=== PATIENT | male | born 1960 | race African-American/Black ===

== ENCOUNTER → 2021-10-26 | Outpatient (CLI) | payer OTHER ==
[~2021-10-26] MED LIST: CONTRAST GIVEN. MC PRN; IOHEXOL 240 MG/ML 50ML VIAL. PO ONE; IOHEXOL 300 MG/ML 100ML VIAL. IV ONE
--- NOTE | 2021-10-26 15:32 | RAD ---
EXAM: CT ABDOMEN/PELVIS WITH CONTRAST. HISTORY: Ventral hernia. TECHNIQUE: Computed tomography of the abdomen and pelvis was performed after the intravenous administ ration of iodinated contrast. One or more of the following individualized dose reduction techniques w ere utilized for this examination: 1. Automated exposure control. 2. Adjustment of the mA and/or kV according to patient size. 3. Use of iterative reconstruction technique. COMPARISON: None. FINDINGS: Lung windows through the visualized portions of the bases reveal mild atelectasis. Bone win dows reveal no suspicious lesions. There is a small intramuscular lipoma in the right ribs muscle ginna suring 2.1 x 1.2 cm. The liver, gallbladder, pancreas, adrenal glands, spleen and kidneys are unremarkable. There are no p athologically enlarged lymph nodes. There is a small hiatal hernia. Sigmoid diverticulosis is mild. The appendix is not inflamed. There is no small bowel obstruction. Th e prostate is severely enlarged at 6.6 x 5.6 cm and impresses on the bladder base. A small to moderate umbilical hernia contains only fat. Its neck measures 3.6 x 2.8 cm. Another small supraumbilical hernia lies 2.5 cm superior to the umbilicus and also contains only fat. Its neck ginna sures 1 cm. It likely contains some fat necrosis. IMPRESSION: 1. Small to moderate umbilical hernia containing only fat. 2. Small immediately supraumbilical hernia containing fat and likely some fat necrosis. 3. Small hiatal hernia. 4. Severe benign prostatic hypertrophy. Electronically signed by: Devin Mancera MD (10/26/2021 3:30 PM) [id number]
== END ==
LOC: CT 11:18
PROVIDERS: ATTEND Specialist
DX: K42.9 Umbilical hernia without obstruction or gangrene (principal); K44.9 Diaphragmatic hernia without obstruction or gangrene; N40.0 Benign prostatic hyperplasia without lower urinary tract symptoms; J98.11 Atelectasis; K57.30 Diverticulosis of large intestine without perforation or abscess without bleeding; K43.9 Ventral hernia without obstruction or gangrene
CPT/HCPCS: 74177; Q9966; Q9967

== ENCOUNTER → 2021-11-25 | Outpatient (CLI) | payer MEDICAID, OTHER ==
[~2021-11-25] MED LIST changes: +AMLO-187 PO; -CONTRAST GIVEN. MC PRN; +FINA5TAB4 PO; -IOHEXOL 240 MG/ML 50ML VIAL. PO ONE; -IOHEXOL 300 MG/ML 100ML VIAL. IV ONE; +LATA2.5D2 OU; +LOSA-73 PO; +OMEP20TA91 PO; +OXYC20TA PO; +TAMS0.4C97 PO; +ZOLP5TAB5 PO
[2021-11-25 14:55] LABS: BASO % 1 % (0-3); EOS # 0.1 x10^3/uL (0.0-0.7); EOS % 3 % (0-3); HEMATOCRIT 41.2 % (39.0-53.0); HEMOGLOBIN 13.3 g/dL (13.0-17.5); LYMPH # 2.3 x10^3/uL (1.0-4.8); LYMPH % 45 % (24-48); MEAN CORPUSCULAR HEMOGLOBIN 27 pg (25-35); MEAN CORPUSCULAR HGB CONC 32 g/dL (31-37); MEAN CORPUSCULAR VOLUME 84 fL (79-100); MONO # 0.6 x10^3/uL (0.0-1.1); MONO % 12 % (0-9); NEUT % 40 % (31-73); PLATELET COUNT 126 x10^3/uL (140-400); RED BLOOD COUNT 4.89 x10^6/uL (4.30-5.70); RED CELL DISTRIBUTION WIDTH 13.4 % (11.5-14.5); WHITE BLOOD COUNT 5.1 x10^3/uL (4.0-11.0)
[2021-11-25 15:14] LABS: ALBUMIN 3.7 g/dL (3.4-5.0); ALBUMIN/GLOBULIN RATIO 0.8 (1.0-1.7); CALCIUM 8.4 mg/dL (8.5-10.1); CREATININE 1.2 mg/dL (0.7-1.3); GFR 74.2; POTASSIUM 3.7 mmol/L (3.5-5.1); TOTAL BILIRUBIN 0.4 mg/dL (0.2-1.0); TOTAL PROTEIN 8.1 g/dL (6.4-8.2)
== END ==
LOC: SURGPAT 14:07
PROVIDERS: ATTEND Specialist
DX: Z01.812 Encounter for preprocedural laboratory examination (principal); K43.9 Ventral hernia without obstruction or gangrene
CPT/HCPCS: 36415; 80053; 85025

== ENCOUNTER 2021-12-01 05:45 | Day surgery (SDC) | payer MEDICAID, OTHER ==
[2021-11-25 14:56] VITALS: BP 176/88
[~2021-12-01] VITALS: Ht 190.5 cm; Wt 127.0 kg
[~2021-12-01 05:45] MED LIST changes: +OMEP20TA8 PO; -OMEP20TA91 PO
[2021-12-01] MEDS ORDERED: HYDROmorphone 2 MG/ML INJ. IVP PRN (06:00)
[2021-12-01] MEDS ORDERED: fentaNYL PF VIAL 100 MCG/2 ML VIAL IVP PRN ×2 (06:00)
[2021-12-01] MEDS ORDERED: PROCHLORPERAZINE 10 MG/2 ML VIAL. IVP PRN (06:00)
[2021-12-01] MEDS ORDERED: MORPHINE SULFATE 2 MG/ML INJ. IVP PRN (06:00)
[2021-12-01] MEDS ORDERED: IV RINGERS,LACTATED 1000ML 1,000 ML IV SCH (06:00)
[2021-12-01 06:18] VITALS: BP 143/86
[2021-12-01] MEDS ORDERED: BUPIVACAINE-EPI 0.5% 30 ML VIAL KIT. ONE ×2 (07:44→10:15)
[2021-12-01] MEDS ORDERED: PROPOFOL 10 MG/ML (20ML) VIAL. IV ONE ×2 (08:13→10:15)
[2021-12-01] MEDS ORDERED: SEVOFLURANE 31 TO 60 MINUTES. IH ONE (08:13)
[2021-12-01] MEDS ORDERED: ONDANSETRON PF 4 MG/2 ML VIAL. ONE (08:13)
[2021-12-01] MEDS ORDERED: LIDOCAINE 2% PF 5 ML VIAL. ONE (08:13)
[2021-12-01] MEDS ORDERED: DEXAMETHASONE SOD PHOS 4 MG/ML VIAL ONE (08:13)
[2021-12-01] MEDS ORDERED: GLYCOPYRROLATE 1 MG/5 ML VIAL. ONE (08:14)
[2021-12-01] MEDS ORDERED: ROCURONIUM 50 MG/5 ML VIAL. ONE (08:14)
[2021-12-01] MEDS ORDERED: NEOSTIGMINE METHYLSULFATE 5 MG/5 ML SYRINGE. ONE (08:14)
[2021-12-01] MEDS ORDERED: fentaNYL PF VIAL 100 MCG/2 ML VIAL ONE ×2 (08:14→10:09)
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
--- NOTE | 2021-12-01 09:17 | PDOC ---
SURGICAL PROGRESS NOTE DATE: 12/01/21 TIME: 09:16 No change in dictated H&P Vital Signs Vital Signs Date Time Temp Pulse Resp B/P (MAP) Pulse Ox O2 Delivery O2 Flow Rate FiO2 12/01/21 06:18 98.4 78 20 97 98.4 12/01/21 06:11 143/86 Room Air Justicifation of Admission Dx: Justifications for Admission: Justification of Admission Dx: Yes JOSE ROMERO MD Dec 01, 2021 09:17
--- NOTE | 2021-12-01 09:19 | PDOC ---
SURGICAL PROGRESS NOTE DATE: 12/01/21 TIME: 09:17 Op Note: Surgeon..................................Sage Pre op diag..............................ventral hernia and umbilical hernia Post op diag............................same Anesthesia..............................general Procedure...............................repair ventral hernia with mesh and repair umbilical hernia Drains....................................none Blood loss...............................15cc Fluids.....................................see anesthesia sheet Condition................................satisfactory Vital Signs Vital Signs Date Time Temp Pulse Resp B/P (MAP) Pulse Ox O2 Delivery O2 Flow Rate FiO2 12/01/21 06:18 98.4 78 20 97 98.4 12/01/21 06:11 143/86 Room Air Justicifation of Admission Dx: Justifications for Admission: Justification of Admission Dx: Yes JOSE ROMERO MD Dec 01, 2021 09:19
[2021-12-01] MEDS ORDERED: PHENYLEPHRINE in 0.9% NACL PF 1 MG/10 ML SYRINGE. IV ONE (09:37)
[2021-12-01] MEDS ORDERED: ePHEDrine PF IN SALINE 50 MG/10 ML SYRINGE. IV ONE (09:52)
--- NOTE | 2021-12-01 11:40 | DISCH ---
DISCHARGE INSTRUCTIONS Condition on Discharge Condition on Discharge: Stable Activity After Discharge Activity Instructions for Disc: Avoid exertion Driving Instructions after Dis: Do not drive today Diet after Discharge Diet after Discharge: Clear Liquid Wound Incision Care Other wound/incision instructi: keep wound dry and clean and change dressing prn Follow-Up Follow up with: call and make appt to see me in 10-14 days JOSE ROMERO MD Dec 01, 2021 11:40
[2021-12-01] MEDS ORDERED: oxyCODONE/APAP 7.5/325 1 TAB TABLET PO ONE (12:45)
[2021-12-01] MEDS ORDERED: oxyCODONE IR 5 MG TABLET PO ONE (12:45)
[2021-12-01 13:00] VITALS: BP 135/75
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
== END 2021-12-01 13:50 | disposition home or self-care (01) ==
LOC: SURG 05:45
PROVIDERS: ATTEND Specialist
PROC: 0WQF0ZZ Repair Abdominal Wall, Open Approach (ICD-10-PCS; principal; 2021-12-01 09:00)
DX: K42.0 Umbilical hernia with obstruction, without gangrene (principal); K43.0 Incisional hernia with obstruction, without gangrene; I10 Essential (primary) hypertension; G47.30 Sleep apnea, unspecified; K21.9 Gastro-esophageal reflux disease without esophagitis; F41.9 Anxiety disorder, unspecified; Z79.899 Other long term (current) drug therapy; Z98.890 Other specified postprocedural states; Z88.8 Allergy status to other drugs, medicaments and biological substances
CPT/HCPCS: 49561; 49568; 49587; A4930; A6253; A6258; A6402; C1781; J0690; J1100; J2370; J2405; J2704; J2710; J3010; J3490